=== PATIENT | female | born 1970 | race Caucasian/White ===

== ENCOUNTER 2019-07-26 09:03 | Inpatient (IN) ==
[2019-07-20 19:07] LABS: Basophils # (Auto) 0.1 K/mcL (0.0-0.3); Basophils % (Auto) 0.8 % (0.0-2.0); Eosinophils # (Auto) 0.1 K/mcL (0.0-0.7); Eosinophils % (Auto) 0.9 % (0.0-7.0); Granulocytes % (Auto) 72.6 % (38.0-78.0); Hematocrit 40.4 % (36.0-48.0); Hemoglobin 14.3 g/dL (12.0-15.0); Lymphocytes # (Auto) 2.4 K/mcL (1.5-4.8); Lymphocytes % (Auto) 18.8 % (15.5-49.0); Mean Cell Volume 91.9 fL (80.0-100.0); Mean Corpuscular HGB Conc 35.3 g/dL (31.0-36.0); Mean Platelet Volume 8.7 fL (7.4-10.4); Monocytes # (Auto) 0.9 K/mcL (0.1-0.9); Monocytes % (Auto) 6.9 % (1.0-12.0); Platelet Count 268 K/mcL (140-440); Red Cell Distribution Width 12.6 % (11.5-14.5); WBC 12.9 K/mcL (4.5-11.0)
[2019-07-20 19:34] LABS: Appearance,Urine HAZY; Bacteria,Urine 0 /hpf (0); Bilirubin,Urine NEG (NEG); Color,Urine YELLOW; Culture Indicated,Urine NO; Glucose,Urine (UA) NEGATIVE (NEG); Ketones,Urine NEG (NEG); Leukocyte Esterase,Urine NEG /uL (NEG); Mucus,Urine FEW /hpf (0); Nitrate,Urine NEG (NEG); Protein,Urine 30 mg/dL (NEG); Specific Gravity,Urine 1.016 (1.000-1.035); Urine Amorphous Crystals MOD /hpf (0); Urine Blood NEG mg/dL (<0.03); Urine RBC 1 /hpf (0-1); Urine Squamous Epithelial Cell 21 /hpf (0-4); Urine Transitional Epi Cells < 1 /hpf (0-2); Urine WBC 3 /hpf (0-4); Urobilinogen,Urine NEG (NEG)
[2019-07-20 19:59] LABS: Blood Urea Nitrogen 8 mg/dl (6-20); Calcium 9.8 mg/dl (8.6-10.4); Carbon Dioxide 28 mmol/L (22-30); Chloride 101 mmol/L (96-108); Glomerular Filtration Rate 109; Glucose 116 mg/dL (70-105)
[2019-07-20 20:05] LABS: INR 0.9 (0.9-1.1); Prothrombin Time 12.5 sec (11.9-14.5)
[~2019-07-26 09:03] MED LIST: 0.9 % SODIUM CHLORIDE 9 ML, KETOROLAC 30 MG, ROPIVACAINE HCL/PF 49.5 ML, EPINEPHrine 0.... IJ SCH; ACETAMINOPHEN 500 MG TABLET PO SCH; IPRATROPIUM/ALBUTEROL 3 ML AMPUL.NEB NEB PRN; PREGABALIN 75 MG CAPSULE PO SCH; SCOPOLAMINE 1 PATCH PATCH TOPICAL PRN; ceFAZolin 2 GM in DEXTROSE 5% IN WATER 50 ML IV SCH; oxyCODONE 10 MG TAB.ER.12H PO SCH
[2019-07-26 10:07] LABS: POC Blood Urea Nitrogen 7 mg/dl (6-20); POC CO2 26 mmol/L (22-30); POC Calcium, Ionized 1.24 mmol/L (1.16-1.32); POC Chloride 105 mmol/L (96-108); POC Creatinine 0.7 mg/dl (0.6-1.1); POC Glucose, Random 100 mg/dL (70-105); POC Potassium 4.3 mmol/L (3.3-5.1); POC Sodium 142 mmol/L (133-145)
[2019-07-26] MEDS ORDERED: GENTAMICIN SULFATE 800 MG/20 ML VIAL IR ONE (11:02)
[2019-07-26] MEDS ORDERED: PROPOFOL 200 MG/20 ML VIAL IV ONE (11:56)
[2019-07-26] MEDS ORDERED: fentaNYL 100 MCG/2 ML VIAL IV ONE (11:56)
[2019-07-26] MEDS ORDERED: LIDOCAINE HCL/PF 100 MG/5 ML SYRINGE IV ONE (11:56)
[2019-07-26] MEDS ORDERED: GLYCOPYRROLATE 0.2 MG/ML VIAL IV ONE (11:56)
[2019-07-26] MEDS ORDERED: MIDAZOLAM 5 MG/5 ML VIAL IV ONE (11:56)
[2019-07-26] MEDS ORDERED: PHENYLEPHRINE 10 MG/ML VIAL IV ONE (11:56)
[2019-07-26] MEDS ORDERED: ONDANSETRON 4 MG/2 ML VIAL IV ONE (11:56)
[2019-07-26] MEDS ORDERED: TRANEXAMIC ACID 1,000 MG/10 ML VIAL IV ONE ×2 (11:56→13:20)
[2019-07-26] MEDS ORDERED: DEXAMETHASONE 10 MG/ML VIAL IV ONE (11:56)
[2019-07-26] MEDS ORDERED: FLUMAZENIL 0.1 MG/ML ML IV PRN (12:58)
[2019-07-26] MEDS ORDERED: ONDANSETRON 4 MG/2 ML VIAL IV PRN ×2 (12:58→13:20)
[2019-07-26] MEDS ORDERED: MEPERIDINE 25 MG/ML SYRINGE IV PRN (12:58)
[2019-07-26] MEDS ORDERED: METOPROLOL TARTRATE 5 MG/5 ML VIAL IV PRN (12:58)
[2019-07-26] MEDS ORDERED: PROMETHAZINE 25 MG/ML VIAL IV PRN (12:58)
[2019-07-26] MEDS ORDERED: IPRATROPIUM/ALBUTEROL 3 ML AMPUL.NEB NEB PRN (12:58)
[2019-07-26] MEDS ORDERED: NALOXONE HCL 0.4 MG/ML VIAL IV PRN (12:58)
[2019-07-26] MEDS ORDERED: METHOCARBAMOL 1,000 MG/10 ML VIAL IV PRN (12:58)
[2019-07-26] MEDS ORDERED: ATROPINE SULFATE 0.4 MG/ML VIAL IV PRN (12:58)
[2019-07-26] MEDS ORDERED: fentaNYL 100 MCG/2 ML VIAL IV PRN (12:58)
[2019-07-26] MEDS ORDERED: HYDROmorphone 2 MG/ML VIAL IV PRN ×2 (12:58→13:20)
[2019-07-26] MEDS ORDERED: ePHEDrine 50 MG/ML AMPUL IV PRN (12:58)
[2019-07-26] MEDS ORDERED: diphenhydrAMINE 50 MG/ML VIAL IV PRN (12:58)
[2019-07-26] MEDS ORDERED: LACTATED RINGERS 1,000 ML IV SCH (13:00)
--- NOTE | 2019-07-26 13:07 | XRay Report ---
CLINICAL INFORMATION: Right total hip arthroplasty TECHNIQUE: Intraoperative spot films were obtained during right total hip arthroplasty. IMPRESSION: Intraoperative spot films as above Interpreted and Authenticated by: Juan David Vargas 07/26/19
[2019-07-26] MEDS ORDERED: KETOROLAC 15 MG/ML VIAL IV PRN (13:20)
[2019-07-26] MEDS ORDERED: oxyCODONE/APAP 5/325MG TABLET PO PRN (13:20)
[2019-07-26] MEDS ORDERED: POLYETHYLENE GLYCOL 3350 17 GM PACKET PO PRN (13:20)
[2019-07-26] MEDS ORDERED: BISACODYL 10 MG SUPP.RECT PR PRN (13:20)
[2019-07-26] MEDS ORDERED: FLEETS ADULT ENEMA PR PRN (13:20)
[2019-07-26] MEDS ORDERED: MAGNESIUM HYDROXIDE 30 ML ORAL.SUSP PO PRN (13:20)
[2019-07-26] MEDS ORDERED: ACETAMINOPHEN 325 MG TABLET PO PRN (13:20)
[2019-07-26] MEDS ORDERED: BENZOCAINE/MENTHOL 1 LOZENGE PO PRN (13:20)
--- NOTE | 2019-07-26 13:20 | Brief Operative Note ---
Date of procedure: 07/26/19 Pre-op diagnosis: Right hip djd Post-op diagnosis: same Procedure: Right total hip Grafts/Implants: Yes Anesthesia: GETA Complications Description: 07/26/19 13:20 none Surgeon: Enoch Camarena Senior Property Accountant: Robert Sam Estimated blood loss (cc): 50 Specimens Removed/Pathology: none sent Condition: stable Disposition: PACU
--- NOTE | 2019-07-26 13:32 | Operative Note ---
DATE OF OPERATION: 07/26/2019 PREOPERATIVE DIAGNOSIS: Right hip degenerative arthritis. POSTOPERATIVE DIAGNOSIS: Right hip degenerative arthritis. PROCEDURE: Right total hip arthroplasty using cementless components from [facility]. SURGEON: Enoch Camarena MD SHORE WORKER: Robert Sam PA-C. This provider's expertise and technical skill were required throughout the case. The [facility] assisted with preoperative coordination, intraoperative retraction, wound closure, dressing and splint application, as well as postoperative documentation and care coordination. BLOOD LOSS: About 50 mL COMPLICATIONS: None. DESCRIPTION OF PROCEDURE: The patient was brought to the operating room and put to sleep with general LMA anesthesia. Once asleep, the patient had the right hip sterilely prepped and draped in the usual sterile fashion. Once this was done, we placed Ioban over the skin. A timeout was performed. We confirmed the operative site by initials, consent form and x-rays. Incisions were made for a superior approach to the hip. This was dissected down and released the superior capsule. We dislocated the hip, superiorly and then made our neck cut at 28 mm from the center of hip rotation. This was then subluxed anteriorly. We reamed up the acetabulum to a size 50, implanted a size 50 cup with a 50 mm liner. Once done, we were able to irrigate thoroughly and place the liner. We then broached up on the femur to a size 4 stem. X-rays were taken to confirm the position of the implant which looked very good; equal leg lengths were present. We implanted a size 4 stem with a small amount of cement distally because of the softness of her bone. We placed a -2.5 neck length and this was reduced. This seemed to fit very nicely. Once this was done, we then repaired the capsule with #1 Ethibond, closed the fascial layer with #1 Stratafix, closed the skin with Stratafix and adhesive closure. Blood loss was about 50 mL. RBH:tavares Job ID: [id number] Doc ID: [id number] Enoch Camarena MD
--- NOTE | 2019-07-26 14:22 | XRay Report ---
CLINICAL INFORMATION: Right total hip arthroplasty TECHNIQUE: AP pelvis. AP and lateral right hip COMPARISON: None. FINDINGS: Status post right total hip arthroplasty. Femoral head and acetabular complements are in anatomic positions. IMPRESSION: Right total hip arthroplasty Interpreted and Authenticated by: Juan David Vargas 07/26/19
[2019-07-26] MEDS: LACTATED RINGERS 1,000 ML IV SCH ×2 (14:33→23:59)
[2019-07-26] MEDS: 0.9 % SODIUM CHLORIDE 10 ML SYRINGE IV SCH ×2 (14:39→20:39)
--- NOTE | 2019-07-26 16:47 | Discharge Summary ---
Ortho Discharge - [facility] - Patient Instructions Diet: Regular Diet Activity: activity as tolerated, weight bearing as tolerated Total Hip Protocol: Follow activity instructions as provided by Physical Therapy. Dressing Care: May shower in 2 days - Follow Up Plan Follow Up Appointments: Robert Sam PA-C [Physician [employer]] - 08/10/19 9:40 am Disposition: Home, Self-Care Prognosis: Good Rehab Potential: Good I certify that the patient requires SNF services: No Overall status at discharge: patient is progressing back to baseline - Orders For Discharge Prescriptions: Docusate Sodium [Colace] 100 mg PO BID #60 cap Transmission Status: Pending to [facility] Aspirin [Ecotrin] 325 mg PO BID #60 tab.ec Transmission Status: Pending to [facility] oxyCODONE/APAP [Percocet 5-325 mg] 1 - 2 tab PO Q4HP PRN #75 tab PRN Reason: Per Pain Protocol Prescription Printed
[2019-07-26] MEDS: ASPIRIN 325 MG ENTERIC COATED TABLET PO SCH (20:02)
[2019-07-26] MEDS: ceFAZolin 1 GM VIAL IV SCH (20:02)
[2019-07-26] MEDS: DOCUSATE SODIUM 100 MG CAPSULE PO SCH (20:02)
[2019-07-26] MEDS ORDERED: SENNOSIDES 1 TABLET PO SCH (21:00)
[2019-07-26] MEDS ORDERED: TEMAZEPAM 15 MG CAPSULE PO PRN (21:00)
[2019-07-27] MEDS: ceFAZolin 1 GM VIAL IV SCH (03:24)
[2019-07-27] MEDS: 0.9 % SODIUM CHLORIDE 10 ML SYRINGE IV SCH (06:44)
--- NOTE | 2019-07-27 07:45 | Orthopedic Progress Note ---
Subjective Patient information: Note initiated : 07/27/19 at 7:44 am Service Date, if different from initiated Date: [] Patient: Anaya Goodson 48 y/o F admitted on 07/26/19 for Right Total Hip Arthroplasty. Chief Complaint: [Pt is stable this morning on post operative day 1 without any significant concerns or complaints. Patients vital signs have remained stable. Patients dressing is dry and is grossly intact from a neurovascular and motor standpoint. Patients 10 point ROS is otherwise negative. ] Objective Vital signs: Vital Signs Temp Pulse Resp BP BP Pulse Ox 07/27/19 07:38 98.9 F 74 14 94/57 97 07/27/19 07:00 97 07/27/19 02:51 98.3 F 75 18 110/53 96 07/26/19 23:55 98.5 F 61 18 102/52 97 07/26/19 19:03 98.0 F 82 20 132/69 99 07/26/19 17:25 97.7 F 78 18 128/61 100 07/26/19 17:00 98 07/26/19 16:25 89 18 128/69 100 07/26/19 15:55 83 18 137/61 99 07/26/19 15:25 89 18 125/62 97 07/26/19 15:20 98 07/26/19 15:10 100 H 18 126/98 98 07/26/19 14:55 92 H 16 122/62 99 07/26/19 14:40 92 H 16 124/54 98 07/26/19 14:25 96.8 F L 89 16 119/64 98 07/26/19 14:10 97.0 F 104 H 14 128/67 95 07/26/19 13:55 96.9 F L 106 H 16 127/71 100 07/26/19 13:50 98 H 18 116/60 100 07/26/19 13:45 93 H 16 104/55 100 07/26/19 13:40 88 17 104/54 100 07/26/19 13:38 97.5 F 98 H 18 106/49 98 07/26/19 09:03 98.4 F 84 18 135/72 99 Intake and Output 07/26/19 07/27/19 07/27/19 21:59 05:59 13:59 Intake Total 690 1393 670 Output Total 1300 650 750 Balance -610 743 -80 Intake: IV 943 670 Lactated Ringers 1,000 ml @ 100 943 670 mls/hr IV .Q10H DEMIAN Rx#: [id number] Oral 690 450 Output: Urine Catheter Amount 500 Straight 500 Void Amount 800 650 750 Other: Meal Dinner Percent of Meal Consumed 50% Feeding Ability Independent Urine Appearance Clear Clear Urine Color Pale Bright Yellow Urine Odor Normal # Voids 1 Weight 108 lb 8 oz Intake & Output: Intake & Output 07/26/19 07/27/19 07/27/19 21:59 05:59 13:59 Intake Total 690 1393 670 Output Total 1300 650 750 Balance -610 743 -80 Weight 108 lb 8 oz Intake: IV 943 670 Lactated Ringers 1,000 ml @ 100 943 670 mls/hr IV .Q10H DEMIAN Rx#: [id number] Oral 690 450 Output: Urine Catheter Amount 500 Straight 500 Void Amount 800 650 750 Other: Meal Dinner Percent of Meal Consumed 50% Feeding Ability Independent Urine Appearance Clear Clear Urine Color Pale Bright Yellow Urine Odor Normal # Voids 1 Incision: Yes healing Incision clean and dry: Yes Dressing: Yes clean Weight bearing status: full Neurological exam IM: Yes motor sensory intact, Yes neurovascular intact Extremities exam IM: Yes Foot pink and warm, Yes neurovascular intact - Labs CBC & BMP: 07/27/19 04:05 07/20/19 15:17 Labs: Orthopedic Labs 07/20/19 16:17 PT 12.5 INR 0.9 APTT 28 07/27/19 07/20/19 04:05 15:17 Hgb 14.3 Hct 32.4 L 40.4 Assessment and Plan (1) Hx of total hip arthroplasty The patient has been educated regarding dressing care, Physical Therapy recommendations, home exercises, restrictions, and follow up appointments. The patient has had all necessary DME prescribed. The patient has remained relatively stable during their hospital course. Leave Dermabond patch intact until followup Status: Acute
[2019-07-27] MEDS: ASPIRIN 325 MG ENTERIC COATED TABLET PO SCH (08:48)
[2019-07-27] MEDS: DOCUSATE SODIUM 100 MG CAPSULE PO SCH (08:49)
[2019-07-27] MEDS ORDERED: MAGNESIUM OXIDE 400 MG TABLET PO SCH (09:00)
[2019-07-27] MEDS ORDERED: FOLIC ACID 1 MG TABLET PO SCH (09:00)
[2019-07-27] MEDS ORDERED: CYANOCOBALAMIN (VITAMIN B-12) 500 MCG TABLET PO SCH (09:00)
== END 2019-07-27 09:20 | disposition home or self-care (01) | DRG 470 ==
LOC: MEDSUR 09:03
PROVIDERS: ADMIT Orthopaedic Surgery; ATTEND Orthopaedic Surgery